=== PATIENT | female | born 1965 | race Caucasian/White ===

== ENCOUNTER 2016-09-03 00:42 | Emergency (ER) | payer OTHER ==
[2016-09-03] MEDS ORDERED: PREDNISONE 20 MG TABLET ONE (01:38)
[2016-09-03] MEDS ORDERED: OXYCODONE/ACETAMINOPHEN 5/325 MG TABLET ONE (01:38)
== END 2016-09-03 02:06 | disposition home or self-care (01) ==
LOC: ED 00:42
DX: L23.9 Allergic contact dermatitis, unspecified cause (principal); F17.210 Nicotine dependence, cigarettes, uncomplicated
CPT/HCPCS: 99283 ×2; A9270; J7512

== ENCOUNTER 2016-09-05 00:23 | Emergency (ER) | payer OTHER ==
[2016-09-05] MEDS ORDERED: HYDROXYZINE HCL 25 MG TABLET ONE (02:54)
[2016-09-05] MEDS ORDERED: METHYLPRED SOD SUCCINATE 125 MG VIAL ONE (02:55)
[2016-09-05 03:04] LABS: SPECIFIC GRAVITY 1.015 (1.001-1.030); URINE BILIRUBIN NEGATIVE (NEGATIVE); URINE BLOOD NEGATIVE (NEGATIVE); URINE GLUCOSE (UA) NEGATIVE (NEGATIVE); URINE LEUKOCYTE ESTERASE TRACE (NEGATIVE); URINE NITRITE NEGATIVE (NEGATIVE); URINE PROTEIN TRACE (NEGATIVE); URINE UROBILINOGEN NORMAL (0-1 mg/dl)
[2016-09-05 03:05] LABS: URINE APPEARANCE CLEAR; URINE COLOR YELLOW
[2016-09-05 03:15] LABS: URINE BACTERIA 0; URINE RBC 0-2 /hpf
[2016-09-05 03:21] LABS: AMPHETAMINES/METHAMPHETAMINES POSITIVE (NEGATIVE); COCAINE NEGATIVE (NEGATIVE); MARIJUANA NEGATIVE (NEGATIVE); METHADONE NEGATIVE (NEGATIVE); OPIATES NEGATIVE (NEGATIVE); TRICYCLIC ANTIDEPRESSANTS NEGATIVE (NEGATIVE)
== END 2016-09-05 03:38 | disposition home or self-care (01) ==
LOC: ED 00:23
DX: L50.9 Urticaria, unspecified (principal); F15.10 Other stimulant abuse, uncomplicated; I10 Essential (primary) hypertension; F17.210 Nicotine dependence, cigarettes, uncomplicated
CPT/HCPCS: 80305; 81001; 99282; 96372; 99283; J3410; J2930